=== PATIENT | male | born 2000 | race Caucasian/White ===

== ENCOUNTER 2025-01-25 00:23 | Emergency (ER) | payer BC, SELFPAY ==
[2025-01-25] MEDS ORDERED: Magnesium 2 GM/50 ML BAG (IN WATER) ONE (00:39)
[2025-01-25] MEDS ORDERED: Dexamethasone 10 MG/ML VIAL ONE (00:39)
[2025-01-25 00:46] LABS: #Basophils 0.08 10x3/uL (0.0-0.2); #Eosinophils 0.58 10x3/uL (0.0-0.5); #Monocytes 1.10 10x3/uL (0.0-1.1); #Neutrophils 5.87 10x3/uL (1.5-8.4); %Basophils 0.7 % (0.0-2.0); %Eosinophils 4.9 % (0.0-6.0); %Lymphocytes 35.5 % (18.0-47.0); %Monocytes 9.3 % (0.0-10.0); %Neutrophils 49.4 % (40.0-75.0); Hematocrit 44.1 % (38.8-50.0); Hemoglobin 14.6 g/dL (13.5-17.5); Mean Corpuscular Hemoglobin 29.1 pg (27.0-33.0); Mean Corpuscular Volume 88.0 fL (81.2-95.1); Platelet Count 338 10x3/uL (150-450); Red Blood Cell (RBC) Count 5.01 10x6/uL (4.32-5.72); White Blood Cell (WBC) Count 11.86 10x3/uL (3.5-10.5)
[2025-01-25 01:06] LABS: ALT (SGPT) 52 U/L (Less than 45); AST (SGOT) 25 U/L (11-34); Albumin 4.3 g/dL (3.1-4.5); Alkaline Phosphatase 38 U/L (40-110); Anion Gap 14 mmol/L (10-20); BUN (Urea Nitrogen) 15 mg/dL (8.9-20.6); Bilirubin, Total 0.2 mg/dL (0.3-1.2); Calc. Creatinine Clearance 0 mL/min (70-130); Calcium 8.7 mg/dL (7.8-10.44); Carbon Dioxide 22 mmol/L (22-29); Chloride 109 mmol/L (98-107); Globulin 2.6 g/dL (2.4-3.5); Glucose 93 mg/dL (70-105); Potassium 4.1 mmol/L (3.5-5.1); Sodium 141 mmol/L (136-145)
[2025-01-25 01:12] LABS: Troponin I 0.010 ng/mL (< 0.028)
[2025-01-25] MEDS ORDERED: Albuterol 2.5 MG (3 mL) NEB ONE (02:17)
[2025-01-25] MEDS ORDERED: Albuterol 2.5 MG (0.5 mL) NEB ONE (02:18)
== END 2025-01-25 03:15 | disposition home or self-care (01) ==
LOC: CSHERS 00:23
DX: J45.901 Unspecified asthma with (acute) exacerbation (principal); F17.290 Nicotine dependence, other tobacco product, uncomplicated
CPT/HCPCS: 71045; 80053; 84484; 85025; 93005; 94640; 94645; 94760; 96374; 96375; J1100; J3475; J7611